=== PATIENT | male | born 1960 | race Two or more races ===

== ENCOUNTER 2019-01-26 16:00 | Outpatient (CLI) | payer OTHER | END 2019-01-26 16:05 | disposition home or self-care (01) | LOC: LAB 16:00 | DX: N40.0 Benign prostatic hyperplasia without lower urinary tract symptoms (principal); E78.2 Mixed hyperlipidemia; E11.610 Type 2 diabetes mellitus with diabetic neuropathic arthropathy; R10.9 Unspecified abdominal pain; D50.9 Iron deficiency anemia, unspecified; B34.8 Other viral infections of unspecified site; E11.9 Type 2 diabetes mellitus without complications; N39.0 Urinary tract infection, site not specified ==

== ENCOUNTER → 2020-05-02 09:09 | Outpatient (CLI) | payer OTHER | END | disposition home or self-care (01) | LOC: LAB 09:09 | PROVIDERS: ATTEND Emergency Medicine Hospice and Palliative Medicine | DX: D68.8 Other specified coagulation defects (principal); N40.1 Benign prostatic hyperplasia with lower urinary tract symptoms; E03.8 Other specified hypothyroidism; D44.9 Neoplasm of uncertain behavior of unspecified endocrine gland ==

== ENCOUNTER 2020-08-30 19:26 | Emergency (ER) | payer OTHER ==
[~2020-08-30] VITALS: Ht 188 cm; Wt 91.2 kg
[2020-08-30] MEDS ORDERED: NORVASC5 MG (19:30)
== END 2020-08-30 21:09 | disposition home or self-care (01) ==
LOC: ER 19:26
DX: I16.1 Hypertensive emergency (principal); I10 Essential (primary) hypertension; R51 Headache